=== PATIENT | male | born 1955 | race Caucasian/White ===

== ENCOUNTER → 2019-11-21 | Outpatient (CLI) | payer BC | END | disposition home or self-care (01) | LOC: LAB 15:56 | DX: N52.9 Male erectile dysfunction, unspecified (principal) ==

== ENCOUNTER → 2020-10-30 | Outpatient (CLI) | payer BC, MEDICARE | END | disposition home or self-care (01) | LOC: COVID19 09:54 | PROVIDERS: ATTEND Family Medicine | DX: Z20.828 Contact with and (suspected) exposure to other viral communicable diseases (principal) ==

== ENCOUNTER 2021-02-21 19:11 | Inpatient (IN) | payer BC, MEDICARE ==
[~2021-02-21] VITALS: Ht 193 cm; Wt 104.1 kg
[2021-02-21 19:13] VITALS: BP 145/56
[2021-02-21 19:59] LABS: BASO % 0.2 % (0.0-1.0); HEMATOCRIT 37.4 % (42.0-52.0); LYMPH # 1.1 10*3/uL (1.3-4.4); LYMPH % 9.4 % (27.0-41.0); MEAN CELL VOLUME 85.4 fl (80.0-94.0); MEAN PLATELET VOLUME 11.1 fl (9.6-12.3); MONO # 1.2 10*3/uL (0.1-1.0); MONO % 9.6 % (3.0-9.0); NEUT # 9.6 10*3/uL (2.3-7.9); PLATELET COUNT AUTOMATED 168 10*3/uL (130-400); RED BLOOD COUNT 4.38 10*6/uL (4.50-5.90); RED CELL DISTRI WIDTH 12.4 % (0-14.5)
[2021-02-21 20:17] LABS: ALBUMIN 2.6 gm/dl (3.1-4.5); ALKALINE PHOSPHATASE 71 U/L (45-117); BUN 11 mg/dl (7-24); CHLORIDE 98 mmol/L (98-107); CREATININE 0.83 mg/dL (0.70-1.30); POTASSIUM 2.9 mmol/L (3.5-5.1); SGOT/AST 29 IU/L (3-35); SGPT/ALT 26 U/L (12-78); SODIUM 133 mmol/L (136-145); TOTAL PROTEIN 6.9 gm/dL (6.4-8.2)
[2021-02-21 20:23] VITALS: BP 137/59
[2021-02-21 21:30] VITALS: BP 122/56
[2021-02-21 23:28] VITALS: BP 122/56
[2021-02-21 23:42] VITALS: BP 121/50
[2021-02-22 01:16] LABS: ABG BASE EXCESS 0.6 mmol/L (-2.0-2.0); ARTERIAL BLOOD GAS PH 7.483 (7.35-7.45); ARTERIAL BLOOD GAS PO2 58.5 (80-90)
[2021-02-22 01:32] LABS: BILIRUBIN Negative (Negative); BLOOD Negative (Negative); CLARITY Clear (Clear); COLOR Yellow (Yellow); GLUCOSE Negative (Negative); KETONE 2+ (Negative); LEUKO ESTERASE Negative (Negative); NITRITE Negative (Negative); PH 6.5 (4.5-8.0); UROBILINOGEN 0.2 E.U./dl (0.0-1.0)
[2021-02-22] MEDS ORDERED: METFORMIN850 MG PO (01:34)
[2021-02-22] MEDS ORDERED: COZAAR25 M1 PO (01:34)
[2021-02-22 01:57] LABS: BACTERIA TRACE
[2021-02-22 06:03] LABS: ALBUMIN 2.3 gm/dl (3.1-4.5); BUN 13 mg/dl (7-24); CHLORIDE 100 mmol/L (98-107); CHOLESTEROL 95 mg/dL (<200); CREATININE 0.83 mg/dL (0.70-1.30); LDH 247 U/L (87-241); POTASSIUM 3.5 mmol/L (3.5-5.1); SGOT/AST 32 IU/L (3-35); SODIUM 134 mmol/L (136-145); TRIGLYCERIDES 89 mg/dl (<150); VLDL CHOLESTEROL 18 mg/dL (6-40)
[2021-02-22 06:13] LABS: ALKALINE PHOSPHATASE 69 U/L (45-117); FREE T4 1.23 ng/dl (0.76-1.46); HDL CHOLESTEROL 24 mg/dl (40-60); LDL CHOLESTEROL 53 mg/dL (9-159); SGPT/ALT 28 U/L (12-78); THYROID STIM HORMONE (HS) 0.404 uIU/ml (0.358-4.75); TOTAL PROTEIN 6.5 gm/dL (6.4-8.2)
[2021-02-22 06:26] LABS: ACT PARTIAL THROMBO TIME 35.9 SECONDS (20.0-32.1); INTERNATIONAL NORM RATIO 1.1 (2.0-3.5)
[2021-02-22 06:30] LABS: BASO % 0.2 % (0.0-1.0); HEMATOCRIT 35.4 % (42.0-52.0); LYMPH # 0.9 10*3/uL (1.3-4.4); LYMPH % 6.2 % (27.0-41.0); MEAN CELL VOLUME 85.9 fl (80.0-94.0); MEAN CORPUSCULAR HGB 28.6 pg (27.0-31.0); MEAN CORPUSCULAR HGB CONC 33.3 g/dl (33.0-37.0); MEAN PLATELET VOLUME 11.9 fl (9.6-12.3); MONO # 0.9 10*3/uL (0.1-1.0); MONO % 6.3 % (3.0-9.0); NEUT # 12.3 10*3/uL (2.3-7.9); NEUT % 86.7 % (47.0-73.0); PLATELET COUNT AUTOMATED 173 10*3/uL (130-400); RED BLOOD COUNT 4.12 10*6/uL (4.50-5.90); RED CELL DISTRI WIDTH 12.8 % (0-14.5); WHITE BLOOD COUNT 14.1 10*3/uL (4.8-10.8)
[2021-02-22 07:38] LABS: VITAMIN D, 25-HYDROXY 11.1 ng/mL (30-100)
[2021-02-22 08:00] VITALS: BP 122/48
[2021-02-22 12:00] VITALS: BP 117/54
[2021-02-22 16:00] VITALS: BP 112/56
[2021-02-22 20:00] VITALS: BP 124/50
[2021-02-23] VITALS: BP 119/55
[2021-02-23 06:35] LABS: BASO % 0.2 % (0.0-1.0); EOS % 0.1 % (1.0-4.0); HEMATOCRIT 34.2 % (42.0-52.0); LYMPH # 1.1 10*3/uL (1.3-4.4); LYMPH % 6.1 % (27.0-41.0); MEAN CELL VOLUME 86.1 fl (80.0-94.0); MEAN CORPUSCULAR HGB 29.2 pg (27.0-31.0); MEAN CORPUSCULAR HGB CONC 33.9 g/dl (33.0-37.0); MONO # 1.3 10*3/uL (0.1-1.0); MONO % 7.3 % (3.0-9.0); NEUT # 15.2 10*3/uL (2.3-7.9); NEUT % 85.2 % (47.0-73.0); PLATELET COUNT AUTOMATED 193 10*3/uL (130-400); RED BLOOD COUNT 3.97 10*6/uL (4.50-5.90); RED CELL DISTRI WIDTH 12.8 % (0-14.5); WHITE BLOOD COUNT 17.9 10*3/uL (4.8-10.8)
[2021-02-23 06:52] LABS: BUN 16 mg/dl (7-24); CHLORIDE 101 mmol/L (98-107); CREATININE 0.67 mg/dL (0.70-1.30); LDH 221 U/L (87-241); POTASSIUM 3.5 mmol/L (3.5-5.1); SODIUM 135 mmol/L (136-145)
[2021-02-23 08:00] VITALS: BP 113/54
[2021-02-23 12:00] VITALS: BP 131/63
[2021-02-23 16:00] VITALS: BP 124/60
[2021-02-23 20:00] VITALS: BP 135/60
[2021-02-24] VITALS: BP 140/65
[2021-02-24 05:59] LABS: BUN 17 mg/dl (7-24); CHLORIDE 104 mmol/L (98-107); CREATININE 0.73 mg/dL (0.70-1.30); SODIUM 138 mmol/L (136-145)
[2021-02-24 06:14] LABS: HEMATOCRIT 36.5 % (42.0-52.0); MEAN CELL VOLUME 88.2 fl (80.0-94.0); MEAN CORPUSCULAR HGB CONC 32.9 g/dl (33.0-37.0); MEAN PLATELET VOLUME 11.7 fl (9.6-12.3); PLATELET COUNT AUTOMATED 219 10*3/uL (130-400); RED BLOOD COUNT 4.14 10*6/uL (4.50-5.90); WHITE BLOOD COUNT 15.5 10*3/uL (4.8-10.8)
[2021-02-24 06:53] LABS: BURR CELLS FEW; PLATELET SUFFICIENCY NORMAL (NORMAL); POLYCHROMASIA SLIGHT; TOTAL CELLS COUNTED 100 #CELLS; TOXIC GRANULATION SLIGHT
[2021-02-24 08:00] VITALS: BP 136/65
[2021-02-24 11:44] VITALS: BP 135/69
[2021-02-24 16:00] VITALS: BP 143/62
[2021-02-24 20:00] VITALS: BP 141/64
[2021-02-25] VITALS: BP 128/59
[2021-02-25 06:22] LABS: MEAN CELL VOLUME 87.3 fl (80.0-94.0); MEAN CORPUSCULAR HGB 29.2 pg (27.0-31.0); MEAN CORPUSCULAR HGB CONC 33.4 g/dl (33.0-37.0); MEAN PLATELET VOLUME 10.9 fl (9.6-12.3); PLATELET COUNT AUTOMATED 233 10*3/uL (130-400); RED BLOOD COUNT 4.01 10*6/uL (4.50-5.90); WHITE BLOOD COUNT 12.2 10*3/uL (4.8-10.8)
[2021-02-25 06:36] LABS: BUN 9 mg/dl (7-24); CHLORIDE 104 mmol/L (98-107); CREATININE 0.66 mg/dL (0.70-1.30); POTASSIUM 3.5 mmol/L (3.5-5.1); SODIUM 137 mmol/L (136-145)
[2021-02-25 07:10] LABS: BURR CELLS FEW; PLATELET SUFFICIENCY NORMAL (NORMAL); POLYCHROMASIA SLIGHT; TOTAL CELLS COUNTED 100 #CELLS; TOXIC GRANULATION SLIGHT
[2021-02-25 07:40] VITALS: BP 110/60
[2021-02-25] MEDS ORDERED: GLUCOPHAGE500 M1 PO (09:36)
[2021-02-25] MEDS ORDERED: COZAAR25 M1 PO (09:37)
[2021-02-25] MEDS ORDERED: AMLODIPINE BESY10 MG PO (09:37)
[2021-02-25 12:00] VITALS: BP 139/64
[2021-02-25 16:00] VITALS: BP 134/55
[2021-02-25 20:00] VITALS: BP 157/69
[2021-02-26] VITALS: BP 151/59
[2021-02-26 08:00] VITALS: BP 131/64
[2021-02-26 12:00] VITALS: BP 142/60
[2021-02-26 16:00] VITALS: BP 135/64
[2021-02-26 20:00] VITALS: BP 130/58; BP 178/53
[2021-02-27] VITALS: BP 138/62
[2021-02-27 08:00] VITALS: BP 126/60
[2021-02-27 08:20] LABS: HEMATOCRIT 36.2 % (42.0-52.0); MEAN CELL VOLUME 88.1 fl (80.0-94.0); MEAN CORPUSCULAR HGB 29.2 pg (27.0-31.0); MEAN CORPUSCULAR HGB CONC 33.1 g/dl (33.0-37.0); MEAN PLATELET VOLUME 10.1 fl (9.6-12.3); PLATELET COUNT AUTOMATED 259 10*3/uL (130-400); RED BLOOD COUNT 4.11 10*6/uL (4.50-5.90); WHITE BLOOD COUNT 11.7 10*3/uL (4.8-10.8)
[2021-02-27 08:37] LABS: ALBUMIN 2.2 gm/dl (3.1-4.5); BUN 11 mg/dl (7-24); CHLORIDE 104 mmol/L (98-107); POTASSIUM 3.9 mmol/L (3.5-5.1); SGPT/ALT 70 U/L (12-78); SODIUM 136 mmol/L (136-145)
[2021-02-27 08:40] LABS: ALKALINE PHOSPHATASE 71 U/L (45-117); CREATININE 0.72 mg/dL (0.70-1.30); SGOT/AST 34 IU/L (3-35); TOTAL PROTEIN 6.3 gm/dL (6.4-8.2)
[2021-02-27 08:43] LABS: PLATELET SUFFICIENCY NORMAL (NORMAL); POLYCHROMASIA SLIGHT; TOTAL CELLS COUNTED 100 #CELLS
[2021-02-27 12:00] VITALS: BP 119/57
[2021-02-27 16:00] VITALS: BP 124/63
[2021-02-27 20:00] VITALS: BP 120/63
[2021-02-28] VITALS: BP 128/60
[2021-02-28 06:10] LABS: BASO % 0.2 % (0.0-1.0); EOS # 0.3 10*3/uL (0.0-0.4); EOS % 2.7 % (1.0-4.0); HEMATOCRIT 35.7 % (42.0-52.0); LYMPH # 1.6 10*3/uL (1.3-4.4); LYMPH % 17.1 % (27.0-41.0); MEAN CELL VOLUME 87.7 fl (80.0-94.0); MEAN CORPUSCULAR HGB CONC 33.1 g/dl (33.0-37.0); MEAN PLATELET VOLUME 10.3 fl (9.6-12.3); MONO # 0.9 10*3/uL (0.1-1.0); MONO % 9.3 % (3.0-9.0); NEUT # 6.4 10*3/uL (2.3-7.9); NEUT % 68.5 % (47.0-73.0); PLATELET COUNT AUTOMATED 299 10*3/uL (130-400); RED BLOOD COUNT 4.07 10*6/uL (4.50-5.90); RED CELL DISTRI WIDTH 12.9 % (0-14.5); WHITE BLOOD COUNT 9.4 10*3/uL (4.8-10.8)
[2021-02-28 06:28] LABS: BUN 12 mg/dl (7-24); CHLORIDE 103 mmol/L (98-107); CREATININE 0.67 mg/dL (0.70-1.30); POTASSIUM 3.6 mmol/L (3.5-5.1); SODIUM 137 mmol/L (136-145)
[2021-02-28 08:00] VITALS: BP 125/61
[2021-02-28 12:00] VITALS: BP 115/58
[2021-02-28 16:00] VITALS: BP 132/66
[2021-02-28 20:00] VITALS: BP 138/64
[2021-03-01] VITALS: BP 120/56
[2021-03-01 08:00] VITALS: BP 114/60
[2021-03-01] MEDS ORDERED: AUGMENTIN 875-875 MG PO (11:50)
[2021-03-01] MEDS ORDERED: MUCUS RELIEF600 MG PO (11:50)
[2021-03-01] MEDS ORDERED: FLUCONAZOLE100 MG PO (11:50)
[2021-03-01 12:00] VITALS: BP 120/76
== END 2021-03-01 13:30 | disposition home or self-care (01) | DRG 871 ==
LOC: ED 19:11 → EDHOLD 22:35 → 4E 22:35
PROVIDERS: Emergency Medicine; Hospitalist; Student in an Organized Health Care Education/Training Program; ADMIT Internal Medicine; ATTEND Internal Medicine
PROC: 5A0935A Assistance with Respiratory Ventilation, Less than 24 Consecutive Hours, High Flow/Velocity Cannula (ICD-10-PCS; 2021-02-22)
PROC: 5A0935A Assistance with Respiratory Ventilation, Less than 24 Consecutive Hours, High Flow/Velocity Cannula (ICD-10-PCS; 2021-02-24)
PROC: 5A0935A Assistance with Respiratory Ventilation, Less than 24 Consecutive Hours, High Flow/Velocity Cannula (ICD-10-PCS; principal; 2021-02-25)
DX: A41.9 Sepsis, unspecified organism (principal); J96.01 Acute respiratory failure with hypoxia; E43 Unspecified severe protein-calorie malnutrition; J18.9 Pneumonia, unspecified organism; Z20.822 Contact with and (suspected) exposure to COVID-19; E87.6 Hypokalemia; E11.9 Type 2 diabetes mellitus without complications; R65.20 Severe sepsis without septic shock; I10 Essential (primary) hypertension; E55.9 Vitamin D deficiency, unspecified; Z90.49 Acquired absence of other specified parts of digestive tract; Z87.891 Personal history of nicotine dependence; Z80.0 Family history of malignant neoplasm of digestive organs; Z79.899 Other long term (current) drug therapy; Z79.84 Long term (current) use of oral hypoglycemic drugs